=== PATIENT | male | born 1990 | race Caucasian/White ===

== ENCOUNTER → 2016-12-27 | Outpatient (CLI) | payer BC ==
[2016-12-27 09:08] LABS: CHLORIDE 104 mmol/L (98-107); POTASSIUM 3.7 mmol/L (3.5-5.1); SODIUM 142 mmol/L (136-145)
[2016-12-27 09:24] LABS: ALBUMIN 4.3 gm/dl (3.1-4.5); ALKALINE PHOSPHATASE 61 U/L (45-117); BILIRUBIN, DIRECT 0.1 mg/dL (0.0-0.2); BILIRUBIN, TOTAL 0.4 mg/dl (0.2-1.0); BUN 13 mg/dl (7-24); CARBON DIOXIDE 29 mmol/L (21-32); CHOLESTEROL 114 mg/dL (<200); EST GLOM FILT AFRICAN AMERICAN > 60 ml/min; FREE T4 0.99 ng/dl (0.76-1.46); GLUCOSE 87 mg/dL (65-99); HDL CHOLESTEROL 53 mg/dl (40-60); IRON 125 ug/dL (65-175); LDL CHOLESTEROL 47 mg/dL (9-159); SGOT/AST 51 IU/L (3-35); SGPT/ALT 89 U/L (12-78); TOTAL PROTEIN 7.6 gm/dL (6.4-8.2); TRIGLYCERIDES 72 mg/dl (<150); VLDL CHOLESTEROL 14 mg/dL (6-40)
[2016-12-27 10:23] LABS: VITAMIN D, 25-HYDROXY 43.6 ng/mL (30-100)
[2016-12-27 10:24] LABS: FOLIC ACID 17.95 ng/mL (>5.38); PTH INTACT 43.1 pg/mL (14.0-72.0)
== END | disposition home or self-care (01) ==
LOC: LAB 08:17
PROVIDERS: Family Medicine
DX: Z13.29 Encounter for screening for other suspected endocrine disorder (principal); Z13.220 Encounter for screening for lipoid disorders; E55.9 Vitamin D deficiency, unspecified; E03.9 Hypothyroidism, unspecified; Z98.84 Bariatric surgery status